=== PATIENT | female | born 2000 | race Caucasian/White ===

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

== ENCOUNTER 2022-04-10 19:12 | Emergency (ER) | payer OTHER ==
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
[2022-04-10 23:16] VITALS: BP 116/78; PULSE 82; RESP 16; TEMP 97.8
== END 2022-04-10 20:28 | disposition home or self-care (01) ==
LOC: EC 19:12
DX: S09.90XA Unspecified injury of head, initial encounter (principal); F17.200 Nicotine dependence, unspecified, uncomplicated; W21.03XA Struck by baseball, initial encounter
CPT/HCPCS: 70450; 99284

== ENCOUNTER 2022-07-05 12:28 | Emergency (ER) | payer OTHER ==
[2022-07-05 12:46] VITALS: PULSE 109; TEMP 98.2
[2022-07-05] MEDS ORDERED: SODIUM CHLORIDE 0.9% 1,000 ML IV STA (13:00)
--- NOTE | 2022-07-05 13:52 | ED ---
General Adult HPI - General Chief complaint: Abdominal Pain Stated complaint: stomach pain, 15 wks Time Seen by Provider: 07/05/22 12:49 Source: patient, RN notes reviewed, old records reviewed Mode of arrival: ambulatory Limitations: no limitations - History of Present Illness Initial comments: 22-year-old female who is currently 15 weeks presents for evaluation of lower abdominal cramping. Patient was at work today, developed lower suprapubic cramping abdominal pain. Patient states this is her first . She denies vaginal bleeding. She has had confirmatory ultrasound and is following with obstetrics. No fever. She states she did feel somewhat lightheaded. No vomiting or diarrhea. - Related Data Previous Rx's Medication Instructions Recorded Nitrofurantoin Monohyd/M-Cryst 100 mg PO Q12HR #6 cap 06/01/18 [Macrobid] Cephalexin [Keflex] 500 mg PO TID 10 Days #30 cap 07/05/22 Allergies Allergy/AdvReac Type Severity Reaction Status Date / Time No Known Allergies Allergy Verified 07/05/22 12:46 Review of Systems ROS Statement: Those systems with pertinent positive or pertinent negative responses have been documented in the HPI. ROS Other: All systems not noted in ROS Statement are negative. Past Medical History Past Medical History: No Reported History History of Any Multi-Drug Resistant Organisms: None Reported Past Surgical History: No Surgical Hx Reported Additional Past Surgical History / Comment(s): ovarian cyst removed Past Psychological History: Anxiety, Depression, PTSD Smoking Status: Current every day smoker Past Alcohol Use History: Occasional Past Drug Use History: Marijuana General Exam Limitations: no limitations General appearance: alert, in no apparent distress Head exam: Present: atraumatic, normocephalic Eye exam: Present: normal appearance, PERRL ENT exam: Present: mucous membranes dry Neck exam: Present: normal inspection. Absent: tenderness, meningismus Respiratory exam: Present: normal lung sounds bilaterally. Absent: respiratory distress, wheezes Cardiovascular Exam: Present: regular rate, normal rhythm GI/Abdominal exam: Present: soft. Absent: distended, tenderness, guarding Extremities exam: Present: normal inspection, normal capillary refill Neurological exam: Present: alert, oriented X3, CN II-XII intact. Absent: motor sensory deficit Psychiatric exam: Present: normal affect, normal mood Skin exam: Present: warm, dry, intact. Absent: cyanosis, diaphoretic Course Vital Signs 10/11/22 12:44 Temperature 98.2 F Pulse Rate 109 H Respiratory 20 Rate Blood Pressure 113/75 O2 Sat by Pulse 97 Oximetry Medical Decision Making - Medical Decision Making 22-year-old female presenting for lower abdominal cramping in . Proximately 15 weeks. No bleeding. She does have a mild leukocytosis, and a significant urinary tract infection. She's given IV fluids and IV antibiotics in the emergency department. Additionally ultrasound is performed of the baby and this does show a single live intrauterine . Heart rate is within the normal range. There is an abnormality identified within the abdomen which will require surveillance with full anatomy scan later in . Patient is informed of this. She will drink plenty fluids. She will take antibiotics as prescribed. - Lab Data Result diagrams: 07/05/22 13:22 07/05/22 13:22 Lab Results 07/05/22 07/05/22 07/05/22 Range/Units 13:22 13:22 13:22 WBC 14.5 H (4.0-11.0) k/uL RBC 4.15 (3.80-5.40) m/uL Hgb 12.9 (11.4-16.0) gm/dL Hct 37.4 (34.0-46.0) % MCV 90.1 (80.0-100.0) fL MCH 31.1 (25.0-35.0) pg MCHC 34.6 (31.0-37.0) g/dL RDW 13.6 (11.5-15.5) % Plt Count 223 (150-450) k/uL MPV 9.7 Neutrophils % 76 % Lymphocytes % 17 % Monocytes % 5 % Eosinophils % 1 % Basophils % 0 % Neutrophils # 11.0 H (1.3-7.7) k/uL Lymphocytes # 2.5 (1.0-4.8) k/uL Monocytes # 0.7 (0-1.0) k/uL Eosinophils # 0.1 (0-0.7) k/uL Basophils # 0.1 (0-0.2) k/uL Sodium 135 L (137-145) mmol/L Potassium 4.4 (3.5-5.1) mmol/L Chloride 103 (98-107) mmol/L Carbon Dioxide 17 L (22-30) mmol/L Anion Gap 15 mmol/L BUN 8 (7-17) mg/dL Creatinine 0.54 (0.52-1.04) mg/dL Est GFR (CKD-EPI)AfAm >90 (>60 ml/min/1.73 sqM) Est GFR (CKD-EPI)NonAf >90 (>60 ml/min/1.73 sqM) Glucose 65 L (74-99) mg/dL Calcium 9.5 (8.4-10.2) mg/dL Total Bilirubin 0.5 (0.2-1.3) mg/dL AST 26 (14-36) U/L ALT 17 (4-34) U/L Alkaline Phosphatase 88 (38-126) U/L Total Protein 7.4 (6.3-8.2) g/dL Albumin 4.2 (3.5-5.0) g/dL Urine Color Yellow Urine Appearance Cloudy H (Clear) Urine pH 6.5 (5.0-8.0) Ur Specific [place] 1.012 (1.001-1.035) Urine Protein 2+ H (Negative) Urine Glucose (UA) Negative (Negative) Urine Ketones Negative (Negative) Urine Blood Moderate H (Negative) Urine Nitrite Negative (Negative) Urine Bilirubin Negative (Negative) Urine Urobilinogen <2.0 (<2.0) mg/dL Ur Leukocyte Esterase Large H (Negative) Urine RBC 29 H (0-5) /hpf Urine WBC >182 H (0-5) /hpf Urine WBC Clumps Many H (None) /hpf Ur Squamous Epith Cells 5 H (0-4) /hpf Urine Bacteria Many H (None) /hpf Urine Mucus Moderate H (None) /hpf Disposition Clinical Impression: Abdominal pain, UTI in Disposition: HOME SELF-CARE Instructions (If sedation given, give patient instructions): Abdominal Pain in (ED), Urinary Tract Infection in (ED) Prescriptions: Cephalexin [Keflex] 500 mg PO TID 10 Days #30 cap Is patient prescribed a controlled substance at d/c from ED?: No Referrals: None,Stated [Primary Care Provider] - 1-2 days Time of Disposition: 15:17
--- NOTE | 2022-07-05 14:15 | US ---
EXAMINATION TYPE: US OB >= 14 wk fetus DATE OF EXAM: 07/05/2022 COMPARISON: None CLINICAL HISTORY: ab pain Pt states cramping, currently diagnosed with a UTI TECHNIQUE: Transabdominal (TA) GESTATIONAL AGE / DATING Physician Established: (15 weeks/3 days) EDC: 12/24/2022 Dates by LMP: LMP unknown Dates by First Scan: No previous this is first scan Dates by Current Scan: (15 weeks/5 days) EDC: 12/22/2022 SURVEY IUP: Single PLACENTA: Anterior PREVIA: No Previa MACRINA: 10.7 cm Normal CERVICAL LENGTH (transabdominal: norm > 3.0cm): 3.2 cm BIOMETRY PRESENTATION: Vertex BPD: 3.1 cm 15 weeks / 5 days HC: 11.5 cm 15 weeks / 4 days AC: 9.9 cm 15 weeks / 6 days FL: 1.7 cm 15 weeks / 0 days ESTIMATED WEIGHT IN GRAMS: 126 grams ESTIMATED WEIGHT IN LBS/OZ: 0 lbs. 4 oz. WEIGHT PERCENTAGE BASED ON ESTABLISHED DATES: 43.5% HC/AC: 1.17 Normal FL/AC: 17 Normal HEART RATE: 147 bpm RHYTHM: Normal Single, viable IUP/ Possible echogenic bowel visualized at end of exam IMPRESSION: 1. Single viable intrauterine 15 weeks 5 days with an EDC of 12/22/2022. Heart rate 147 bpm. Assessment for anatomy is too early however within the abdomen may be somewhat echogenic bowel which should be followed at 18-20 weeks with repeat complete ultrasound to include an atomy. This can occasionally be a marker for disorders.
[2022-07-05 14:32] LABS: Basophils # (A) 0.1 k/uL (0-0.2); Basophils % (A) 0 %; Eosinophils # (A) 0.1 k/uL (0-0.7); Eosinophils % (A) 1 %; HCT 37.4 % (34.0-46.0); HGB 12.9 gm/dL (11.4-16.0); Lymphocytes # (A) 2.5 k/uL (1.0-4.8); Lymphocytes % (A) 17 %; MCH 31.1 pg (25.0-35.0); MCHC 34.6 g/dL (31.0-37.0); MCV 90.1 fL (80.0-100.0); Mean Platelet Volume 9.7; Monocytes # (A) 0.7 k/uL (0-1.0); Monocytes % (A) 5 %; Neutrophils % (A) 76 %; Platelet Count 223 k/uL (150-450); RBC 4.15 m/uL (3.80-5.40); RDW 13.6 % (11.5-15.5); WBC 14.5 k/uL (4.0-11.0)
[2022-07-05 14:36] LABS: Appearance,Urine Cloudy (Clear); Bacteria,Urine Many /hpf; Bilirubin,Urine Negative (Negative); Blood,Urine Moderate (Negative); Color,Urine Yellow; Glucose,Urine (UA) Negative (Negative); Ketones,Urine Negative (Negative); Leukocyte Esterase,Urine Large (Negative); Mucus,Urine Moderate /hpf; Nitrite,Urine Negative (Negative); PH, Urine 6.5 (5.0-8.0); Protein,Urine 2+ (Negative); RBC,Urine 29 /hpf (0-5); Specific Gravity,Urine 1.012 (1.001-1.035); Squamous Epithelial Cell,Urine 5 /hpf (0-4); Urobilinogen,Urine <2.0 mg/dL (<2.0); WBC,Urine >182 /hpf (0-5)
[2022-07-05 14:42] LABS: ALT 17 U/L (4-34); AST 26 U/L (14-36); African American GFR (CKD) >90 (>60 ml/min/1.73 sqM); Albumin 4.2 g/dL (3.5-5.0); Alkaline Phosphatase 88 U/L (38-126); Anion Gap 15 mmol/L; Blood Urea Nitrogen 8 mg/dL (7-17); Calcium 9.5 mg/dL (8.4-10.2); Carbon Dioxide 17 mmol/L (22-30); Chloride 103 mmol/L (98-107); Glucose 65 mg/dL (74-99); Non-African American GFR(CKD) >90 (>60 ml/min/1.73 sqM); Potassium 4.4 mmol/L (3.5-5.1); Sodium 135 mmol/L (137-145); Total Bilirubin 0.5 mg/dL (0.2-1.3); Total Protein 7.4 g/dL (6.3-8.2)
[2022-07-05] MEDS ORDERED: cefTRIAXone IN SWFI 1,000 MG/10 ML SYRINGE IVP STA (15:13)
[2022-07-05 15:34] VITALS: BP 102/62; RESP 16
== END 2022-07-05 15:34 | disposition home or self-care (01) ==
LOC: EC 12:28
DX: O23.42 Unspecified infection of urinary tract in pregnancy, second trimester (principal); O26.892 Other specified pregnancy related conditions, second trimester; F41.9 Anxiety disorder, unspecified; F32.A Depression, unspecified; F17.200 Nicotine dependence, unspecified, uncomplicated; F12.90 Cannabis use, unspecified, uncomplicated; Z79.899 Other long term (current) drug therapy; Z3A.15 15 weeks gestation of pregnancy
CPT/HCPCS: 36415; 80053; 85025; 81001; 87086; 76805; 99284; 96374; 96361 ×2; J0696

== ENCOUNTER 2023-10-01 13:05 | Emergency (ER) | payer OTHER ==
[2023-10-01 13:24] VITALS: BP 141/64; PULSE 112; RESP 20; TEMP 98
--- NOTE | 2023-10-01 14:50 | US ---
EXAMINATION TYPE: Ultrasound OB <= 14 week transvaginal DATE OF EXAM: 10/01/2023 2:15 PM COMPARISON: NONE CLINICAL INDICATION: Female, 23 years old with history of cramping,pain; Patient states she wants to know dates and denies any symptoms. . Patient took test this morning and is unsure of L MP. EXAM PERFORMED: Transvaginal (TV) and Transabdominal (TA) EXAM MEASUREMENTS: GESTATIONAL AGE / DATING Physician Established: Not yet established Dates by LMP: LMP unknown Dates by First Scan: No previous this is first scan Dates by Current Scan for: (5 weeks/2 days) EDC: 05/29/24 MATERNAL ANATOMY Uterus: 9.1 x 5.6 x 6.2 cm Right Ovary: Best seen TA; 2.2 x 1.6 x 2.2 cm Left Ovary: 3.1 x 2.1 x 3.6 cm Post CDS / Adnexa: wnl Presence of free fluid: no Presence of corpus luteal cyst: not noted Presence of subchorionic bleed: no Possible 2 endometrial horns. The gestational sac appears to be at the right horn. GESTATION / SURVEY CRL: 0.27 cm (5 weeks/6 days) MSD: 1.11 cm (5 weeks/2 days) Yolk Sac (normal less than 6mm): 0.32 cm Heart Rate: unable to detect tones on today's exam IUP: No cardiac activity noted on today's scan. Question demise versus early gestation. Date of LMP: unknown Beta HcG (if available): Not available at this time IMPRESSION: 1. Intrauterine with gestational sac, yolk sac, and small pole identified. Measuring at 5 weeks 2 days. No cardiac activity identified at this time. Recommend serial beta hCG and ultraso und follow-up to ensure the appearance of normal cardiac activity in order to exclude demise. 2. Findings suggest either arcuate versus partially septate uterus. Gestational sac located at the ri ght fundal endometrium
--- NOTE | 2023-10-01 15:06 | ED ---
General Adult HPI - General Chief complaint: Recheck/Abnormal Lab/Rx Stated complaint: Possible Preg. Time Seen by Provider: 10/01/23 13:26 Source: patient, RN notes reviewed Mode of arrival: ambulatory Limitations: no limitations - History of Present Illness Initial comments: 23-year-old female presents emergency Department chief complaint of abdominal pain . Patient states she is A0 she is unsure for how long she has. She states she has mild cramping. Patient states she is a 9 month old at home and states that she does not want another baby. Patient states she is very nervous, scared at this time. Denies any bleeding - Related Data Previous Rx's Medication Instructions Recorded Nitrofurantoin Monohyd/M-Cryst 100 mg PO Q12HR #6 cap 06/01/18 [Macrobid] Cephalexin [Keflex] 500 mg PO TID 10 Days #30 cap 07/05/22 Allergies Allergy/AdvReac Type Severity Reaction Status Date / Time No Known Allergies Allergy Verified 10/01/23 13:10 Review of Systems ROS Statement: Those systems with pertinent positive or pertinent negative responses have been documented in the HPI. ROS Other: All systems not noted in ROS Statement are negative. Past Medical History Past Medical History: No Reported History History of Any Multi-Drug Resistant Organisms: None Reported Past Surgical History: No Surgical Hx Reported Additional Past Surgical History / Comment(s): ovarian cyst removed Past Psychological History: Anxiety, Depression, PTSD Smoking Status: Former smoker Past Alcohol Use History: Occasional Past Drug Use History: Marijuana General Exam Limitations: no limitations General appearance: alert, in no apparent distress Head exam: Present: atraumatic, normocephalic, normal inspection Neck exam: Present: normal inspection. Absent: tenderness, meningismus, lymphadenopathy Respiratory exam: Present: normal lung sounds bilaterally. Absent: respiratory distress, wheezes, rales, rhonchi, stridor Cardiovascular Exam: Present: regular rate, normal rhythm, normal heart sounds. Absent: systolic murmur, diastolic murmur, rubs, gallop, clicks GI/Abdominal exam: Present: soft, normal bowel sounds. Absent: distended, tenderness, guarding, rebound, rigid Course Vital Signs 10/01/23 13:07 Temperature 98 F Pulse Rate 112 H Respiratory 20 Rate Blood Pressure 141/64 O2 Sat by Pulse 96 Oximetry Medical Decision Making - Medical Decision Making Was pt. sent in by a medical professional or institution ([facility]ES[facility] Pizarro, [employer], urgent care, hospital, or long term...) When possible be specific @ -No Did you speak to anyone other than the patient for history (EMS, parent, family, police, friend...)? What history was obtained from this source @ -No Did you review nursing and triage notes (agree or disagree)? Why? @ -I reviewed and agree with nursing and triage notes Were old charts reviewed (outside hosp., previous admission, EMS record, old EKG, old radiological studies, urgent care reports/EKG's, long term records)? Report findings @ -No old charts were reviewed Differential Diagnosis (chest pain, altered mental status, abdominal pain women, abdominal pain men, vaginal bleeding, weakness, fever, dyspnea, syncope, headache, dizziness, GI bleed, back pain, seizure, CVA, palpatations, mental health, musculoskeletal)? @ -Differential Abdominal Pain Women: Appendicitis, Cholecystitis, diverticulosis, ischemic bowel, pancreatitis, hepatitis, UTI, gastroenteritis, AAA, incarcerated hernia, bowel obstruction, constipation, inflammatory bowel, hepatitis, peptic ulcer disease, splenic infarction, perforated viscus, vulvitis, ovarian torsion, PID, kidney stone, placenta abruption, this is not meant to be an all-inclusive list EKG interpreted by me (3pts min.). @ -None X-rays interpreted by me (1pt min.). @ -None done CT interpreted by me (1pt min.). @ -None done U/S interpreted by me (1pt. min.). @ -Ultrasound shows gestational sac 5 weeks of 2 days no heart rate What testing was considered but not performed or refused? (CT, X-rays, U/S, labs)? Why? @ -None What meds were considered but not given or refused? Why? @ -None Did you discuss the management of the patient with other professionals (professionals i.e. TRESSA Pizarro, [employer], lab, RT, psych nurse, social service agency director, investigator narcotics, teacher, control officer manager, major case detective)? Give summary @ -No Was smoking cessation discussed for >3mins.? @ -No Was critical care preformed (if so, how long)? @ -No Were there social determinants of health that impacted care today? How? (Homelessness, low income, unemployed, alcoholism, drug addiction, transportation, low edu. Level, literacy, decrease access to med. care, penitentiary, rehab)? @ -No Was there de-escalation of care discussed even if they declined (Discuss DNR or withdrawal of care, Hospice)? DNR status @ -No What co-morbidities impacted this encounter? (DM, HTN, Smoking, COPD, CAD, Cancer, CVA, ARF, Chemo, Hep., AIDS, mental health diagnosis, sleep apnea, morbid obesity)? @ -None Was patient admitted / discharged? Hospital course, mention meds given and route, prescriptions, significant lab abnormalities, going to OR and other pertinent info. @ -[Discharged patient's ultrasound does not show any acute findings. She has no active bleeding patient is discharged in stable condition patient was stating that she does not want this baby Undiagnosed new problem with uncertain prognosis? @ -No Drug Therapy requiring intensive monitoring for toxicity (Heparin, Nitro, Insulin, Cardizem)? @ -No Were any procedures done? @ -No Diagnosis/symptom? @ - Acute, or Chronic, or Acute on Chronic? @ -Acute Uncomplicated (without systemic symptoms) or Complicated (systemic symptoms)? @ -Uncomplicated Side effects of treatment? @ -No Exacerbation, Progression, or Severe Exacerbation? @ -No Poses a threat to life or bodily function? How? (Chest pain, [place], CA, pneumonia, PE, COPD, DKA, ARF, appy, cholecystitis, CVA, Diverticulitis, Homicidal, Suicidal, threat to staff... and all critical care pts) @ -No Disposition Clinical Impression: Disposition: HOME SELF-CARE Condition: Stable Instructions (If sedation given, give patient instructions): (ED) Additional Instructions: Please return to the Emergency Department if symptoms worsen or any other concerns. Is patient prescribed a controlled substance at d/c from ED?: No Referrals: None,Stated [Primary Care Provider] - 1-2 days Time of Disposition: 15:05
== END 2023-10-01 15:45 | disposition home or self-care (01) ==
LOC: EC 13:05
DX: O36.8310 Maternal care for abnormalities of the fetal heart rate or rhythm, first trimester, not applicable or unspecified (principal); O99.331 Smoking (tobacco) complicating pregnancy, first trimester; F12.90 Cannabis use, unspecified, uncomplicated; Z79.891 Long term (current) use of opiate analgesic; Z3A.01 Less than 8 weeks gestation of pregnancy
CPT/HCPCS: 76801; 76817; 99284

== ENCOUNTER 2024-04-27 13:10 | Emergency (ER) | payer OTHER ==
--- NOTE | 2024-04-27 13:38 | ED ---
Female Urogenital HPI - General Chief complaint: Urogenital Stated complaint: Preg(unknown weeks) wants US Time Seen by Provider: 04/27/24 13:36 Source: patient, RN notes reviewed Mode of arrival: ambulatory Limitations: no limitations - History of Present Illness Initial comments: This is a 24-year-old female who presents to the emergency department for evaluation of . Patient is and approximately 6 weeks . She plans on terminating the , but states that she started to have some abdominal cramping yesterday and into today. Denies any vaginal bleeding. She has not yet been evaluated by [facility]. - Related Data Previous Rx's Medication Instructions Recorded Nitrofurantoin Monohyd/M-Cryst 100 mg PO Q12HR #6 cap 06/01/18 [Macrobid] Cephalexin [Keflex] 500 mg PO TID 10 Days #30 cap 07/05/22 Allergies Allergy/AdvReac Type Severity Reaction Status Date / Time No Known Allergies Allergy Verified 04/27/24 14:00 Review of Systems ROS Statement: Those systems with pertinent positive or pertinent negative responses have been documented in the HPI. ROS Other: All systems not noted in ROS Statement are negative. Past Medical History Past Medical History: No Reported History History of Any Multi-Drug Resistant Organisms: None Reported Past Surgical History: No Surgical Hx Reported Additional Past Surgical History / Comment(s): ovarian cyst removed Past Psychological History: Anxiety, Depression, PTSD Smoking Status: Former smoker Past Alcohol Use History: Occasional Past Drug Use History: Marijuana General Exam Limitations: no limitations General appearance: alert, in no apparent distress Head exam: Present: atraumatic, normocephalic, normal inspection Respiratory exam: Present: normal lung sounds bilaterally. Absent: respiratory distress, wheezes, rales, rhonchi, stridor Cardiovascular Exam: Present: regular rate, normal rhythm, normal heart sounds. Absent: systolic murmur, diastolic murmur, rubs, gallop, clicks Neurological exam: Present: alert, oriented X3, CN II-XII intact Psychiatric exam: Present: normal affect, normal mood Skin exam: Present: warm, dry, intact, normal color. Absent: rash Course Vital Signs 04/27/24 04/27/24 13:57 17:56 Temperature 98.4 F 98.2 F Pulse Rate 95 60 Respiratory 16 18 Rate Blood Pressure 99/65 101/62 O2 Sat by Pulse 99 99 Oximetry Medical Decision Making - Medical Decision Making This is a 24 year old female who presents to the emergency department for abdominal pain in . Was pt. sent in by a medical professional or institution? @ -No Did you speak to anyone other than the patient for history? @ -No Did you review nursing and triage notes? @ -Yes, and I agree, it is accurate with regards to the patient's symptoms. Were old charts reviewed? @ -No Differential Diagnosis? @ -Differential Abdominal Pain Women: Appendicitis, Cholecystitis, diverticulosis, ischemic bowel, pancreatitis, hepatitis, UTI, gastroenteritis, AAA, incarcerated hernia, bowel obstruction, constipation, inflammatory bowel, hepatitis, peptic ulcer disease, splenic infarction, perforated viscus, vulvitis, ovarian torsion, PID, kidney stone, placenta abruption, this is not meant to be an all-inclusive list EKG interpreted by me (3pts min.)? @ -Not obtained X-rays interpreted by me (1pt min.)? @ -Not obtained CT interpreted by me (1pt min.)? @ -Not obtained U/S interpreted by me (1pt. min.)? @ -Obstetrics ultrasound obtained. My interpretation is unable to identify an IUP. What testing was considered but not performed? (CT, X-rays, U/S, labs)? Why? @ -None What meds were considered but not given? Why? @ -None Did you discuss the management of the patient with other professionals? @ -No Did you reconcile home meds? @ -No Was smoking cessation discussed for >3mins.? @ -No Was critical care preformed (if so, how long)? @ -No Were there social determinants of health that impacted care today? How? (Homelessness, low income, unemployed, alcoholism, drug addiction, transportation, low edu. Level, literacy, decrease access to med. care, [facility], rehab)? @ -No Was there de-escalation of care discussed even if they declined? (Discuss DNR or withdrawal of care, Hospice)? @ -No What co-morbidities impacted this encounter? (DM, HTN, Smoking, COPD, CAD, Cancer, CVA, Hep., AIDS, mental health diagnosis, sleep apnea, morbid obesity)? @ - Was patient admitted / discharged? @ -Discharged. Lab work demonstrates an hCG of 1011. Urinalysis negative for signs of infection. Obstetrics ultrasound was unable to identify an IUP, likely due to early gestational age. Patient declined to have beta-hCG repeated in 48 hours. States that she is not experiencing much pain at this time. She does plan on terminating this and will follow-up with the appropriate providers for that. Patient discharged home in stable condition. Return precautions reviewed in depth, the patient is instructed to return to the emergency department with any new, worsening, or concerning symptoms. Patient verbalized understanding. This case was discussed in detail with the attending ED physician, Dr. Hinkle. Presentation, findings, and treatment plan discussed in detail as well. Undiagnosed new problem with uncertain prognosis? @ -None Drug Therapy requiring intensive monitoring for toxicity (Heparin, Nitro, Insu randall, Cardizem)? @ -None Were any procedures done? @ -None Diagnosis/symptom? @ -Pelvic pain in Acute, or Chronic, or Acute on Chronic? @ -Acute Uncomplicated (without systemic symptoms) or Complicated (systemic symptoms)? @ -Uncomplicated Side effects of treatment? @ -None Exacerbation, Progression, or Severe Exacerbation] @ -Not applicable Poses a threat to life or bodily function? @ -No - Lab Data Result diagrams: 04/27/24 14:00 04/27/24 14:00 Lab Results 04/27/24 04/27/24 04/27/24 Range/Units 14:00 14:00 15:55 WBC 12.0 H (3.8-10.6) k/uL RBC 4.25 (3.80-5.40) m/uL Hgb 13.2 (11.4-16.0) gm/dL Hct 39.9 (34.0-46.0) % MCV 94.0 (80.0-100.0) fL MCH 31.1 (25.0-35.0) pg MCHC 33.1 (31.0-37.0) g/dL RDW 13.0 (11.5-15.5) % Plt Count 260 (150-450) k/uL MPV 9.8 Neutrophils % 72 % Lymphocytes % 22 % Monocytes % 4 % Eosinophils % 1 % Basophils % 0 % Neutrophils # 8.6 H (1.3-7.7) k/uL Lymphocytes # 2.6 (1.0-4.8) k/uL Monocytes # 0.4 (0-1.0) k/uL Eosinophils # 0.2 (0-0.7) k/uL Basophils # 0.0 (0-0.2) k/uL Sodium 137 (137-145) mmol/L Potassium 4.6 (3.5-5.1) mmol/L Chloride 109 H (98-107) mmol/L Carbon Dioxide 19 L (22-30) mmol/L Anion Gap 9 mmol/L BUN 15 (7-17) mg/dL Creatinine 0.63 (0.52-1.04) mg/dL Est GFR (CKD-EPI)AfAm >90 (>60 ml/min/1.73 sqM) Est GFR (CKD-EPI)NonAf >90 (>60 ml/min/1.73 sqM) Glucose 76 (74-99) mg/dL Calcium 10.0 (8.4-10.2) mg/dL Total Bilirubin 0.8 (0.2-1.3) mg/dL AST 26 (14-36) U/L ALT 17 (4-34) U/L Alkaline Phosphatase 67 (38-126) U/L Total Protein 6.8 (6.3-8.2) g/dL Albumin 4.2 (3.5-5.0) g/dL HCG, Quant 1011.8 mIU/mL Urine Color Yellow Urine Appearance Cloudy H (Clear) Urine pH 5.5 (5.0-8.0) Ur Specific [place] 1.027 (1.001-1.035) Urine Protein Negative (Negative) Urine Glucose (UA) Negative (Negative) Urine Ketones 1+ H (Negative) Urine Blood Negative (Negative) Urine Nitrite Negative (Negative) Urine Bilirubin Negative (Negative) Urine Urobilinogen <2.0 (<2.0) mg/dL Ur Leukocyte Esterase Negative (Negative) Urine RBC 1 (0-5) /hpf Urine WBC 2 (0-5) /hpf Ur Squamous Epith Cells 11 H (0-4) /hpf Urine Mucus Occasional H (None) /hpf - Radiology Data Radiology results: report reviewed, image reviewed Disposition Clinical Impression: Disposition: HOME SELF-CARE Condition: Good Instructions (If sedation given, give patient instructions): (ED) Additional Instructions: Return to the emergency department with any new, worsening, or concerning symptoms. Is patient prescribed a controlled substance at d/c from ED?: No Referrals: None,Stated [Primary Care Provider] - 1-2 days Time of Disposition: 17:15
[2024-04-27 16:06] LABS: Basophils % (A) 0 %; Eosinophils # (A) 0.2 k/uL (0-0.7); Eosinophils % (A) 1 %; HCT 39.9 % (34.0-46.0); HGB 13.2 gm/dL (11.4-16.0); Lymphocytes # (A) 2.6 k/uL (1.0-4.8); Lymphocytes % (A) 22 %; MCH 31.1 pg (25.0-35.0); MCHC 33.1 g/dL (31.0-37.0); Mean Platelet Volume 9.8; Monocytes # (A) 0.4 k/uL (0-1.0); Monocytes % (A) 4 %; Neutrophils # (A) 8.6 k/uL (1.3-7.7); Neutrophils % (A) 72 %; Platelet Count 260 k/uL (150-450); RBC 4.25 m/uL (3.80-5.40)
[2024-04-27 16:18] LABS: ALT 17 U/L (4-34); AST 26 U/L (14-36); African American GFR (CKD) >90 (>60 ml/min/1.73 sqM); Albumin 4.2 g/dL (3.5-5.0); Alkaline Phosphatase 67 U/L (38-126); Anion Gap 9 mmol/L; Blood Urea Nitrogen 15 mg/dL (7-17); Carbon Dioxide 19 mmol/L (22-30); Chloride 109 mmol/L (98-107); Glucose 76 mg/dL (74-99); Non-African American GFR(CKD) >90 (>60 ml/min/1.73 sqM); Potassium 4.6 mmol/L (3.5-5.1); Sodium 137 mmol/L (137-145); Total Bilirubin 0.8 mg/dL (0.2-1.3); Total Protein 6.8 g/dL (6.3-8.2)
[2024-04-27 16:25] LABS: Appearance,Urine Cloudy (Clear); Bilirubin,Urine Negative (Negative); Blood,Urine Negative (Negative); Color,Urine Yellow; Glucose,Urine (UA) Negative (Negative); Ketones,Urine 1+ (Negative); Leukocyte Esterase,Urine Negative (Negative); Mucus,Urine Occasional /hpf; Nitrite,Urine Negative (Negative); PH, Urine 5.5 (5.0-8.0); Protein,Urine Negative (Negative); RBC,Urine 1 /hpf (0-5); Specific Gravity,Urine 1.027 (1.001-1.035); Squamous Epithelial Cell,Urine 11 /hpf (0-4); Urobilinogen,Urine <2.0 mg/dL (<2.0); WBC,Urine 2 /hpf (0-5)
[2024-04-27 16:34] LABS: HCG,Quantitative Serum 1011.8 mIU/mL
--- NOTE | 2024-04-27 17:07 | US ---
EXAMINATION TYPE: Ultrasound OB <= 14 week fetus DATE OF EXAM: 04/27/2024 4:11 PM COMPARISON: NONE CLINICAL INDICATION: Female, 24 years old with history of Pelvic pain in ; no pain, no vagin al bleeding. mild cramping. confirm dates EXAM PERFORMED: Transabdominal (TA) EXAM MEASUREMENTS: GESTATIONAL AGE / DATING Physician Established: Not yet established Dates by LMP: LMP unknown Dates by First Scan: No previous this is first scan Dates by Current Scan for: No IUP seen at this time MATERNAL ANATOMY Uterus: 6.8 x 4.9 x 5.6cm Right Ovary: 4.6 x 4.1 x 3.2cm Left Ovary: 3.1 x 2.8 x 1.7cm Post CDS / Adnexa: wnl Presence of free fluid: no Presence of corpus luteal cyst: complex cystic lesion right ovary = 3.7 x 2.8 x 3.4cm GESTATION / SURVEY IUP: No IUP seen at this time Date of LMP: 2 months ago Beta HcG (if available): Not available at this time IMPRESSION: 1. No intrauterine identified. Recommend serial beta hCG and ultrasound follow-up to ensure the appearance of a viable intrauterine . Current differential considerations include faile d , too early to visualize intrauterine , and nonvisualized ectopic . 2. Suspect a 3.7 cm corpus luteum of the right ovary.
[2024-04-27 17:58] VITALS: BP 101/62; PULSE 60; RESP 18; TEMP 98.2
== END 2024-04-27 18:24 | disposition home or self-care (01) ==
LOC: EC 13:10
DX: O26.891 Other specified pregnancy related conditions, first trimester (principal); R10.2 Pelvic and perineal pain; Z87.891 Personal history of nicotine dependence; Z3A.01 Less than 8 weeks gestation of pregnancy
CPT/HCPCS: 36415; 76801; 80053; 81001; 84702; 85025; 99284